=== PATIENT | female | born 1930 | race Caucasian/White ===

== ENCOUNTER 2016-10-13 07:54 | Day surgery (SDC) | payer MEDICARE ==
[2016-10-06 17:21] LABS: ASCORBIC ACID (UR NOT ORDER) NEG (NEG); BILIRUBIN, URINE NEGATIVE (NEG); KETONE, URINE NEGATIVE (NEG); LEUKOCYTE ESTERASE(NOT OR NEG (NEG); WBC (NOT ORDERED) (RFLEX) 1 (0-5)
[2016-10-06 17:22] LABS: HEMOGLOBIN 12.5 g/dL (12.0-16.0)
[2016-10-06 17:34] LABS: CALCIUM, SERUM 9.3 MG/DL (8.5-10.4); CHLORIDE, SERUM 103 MMOL/L (96-112); CREATININE 0.79 MG/DL (0.55-1.02); GFR AFRICAN AMERICAN 80 ML/MIN (>=60); GFR NON AFRICAN AMERICAN 69 ML/MIN (>=60); GLUCOSE, SERUM 92 MG/DL (60-99); POTASSIUM, SERUM 3.8 MMOL/L (3.5-5.3); SODIUM, SERUM 137 MMOL/L (135-148)
[2016-10-06 17:36] LABS: BUN (BLOOD UREA NITROGEN) 16 MG/DL (6-23); CO2 (CARBON DIOXIDE) 29 MMOL/L (24-34)
--- NOTE | ~2016-10-13 | OP ---
Record Of Operation [facility] [address] [place]. [address] NAME: CARROLL VALENZUELA : 34 STATUS : [facility]#: [id number] AGE: 86 ADM/REG DATE : 10/13/16 MR#: [id number] REPORT SERV DATE: 10/14/16 DICTATED BY: SLAVA DAVALOS DATE: 10/13/16 REPORT STATUS : Draft TRANSCRIBED BY: SOCORRO DATE: 10/13/16 DATE OF PROCEDURE: 10/13/2016 TYPE OF OPERATION: 1. Cystourethroscopy. 2. Right retrograde pyelogram. 3. Right ureteroscopy. 4. Placement of 6 x 24 right ureteral stent. PREOPERATIVE DIAGNOSIS: Right hydronephrosis. POSTOPERATIVE DIAGNOSIS: Right UPJ obstruction. INDICATIONS: Ms. Valenzuela is an 86-year-old female with symptomatic right hydronephrosis. She is here for evaluation. ANESTHESIA: General. COMPLICATIONS: None. IMPLANTS: 6 x 24 right ureteral stent with tether. SPECIMENS: None. NARRATIVE: The patient was brought to the operating room, identified by her wristband. General anesthesia was induced and Levaquin was given for preoperative antibiotics. She was placed in the dorsal lithotomy position and prepped and draped in sterile fashion. A cystoscope was placed into her urethra and into her bladder. The bladder was inspected. It was normal. The right ureteral orifice was identified and cannulated with a Sensor wire. A retrograde pyelogram was performed. The ureter was of normal caliber with no filling defects. The renal pelvis and calices were dilated, but not seriously so. Ureter inserted high on the renal pelvis. A wire was placed up the ureter and up to the level of the kidney. A flexible ureteroscope was placed over the wire. The kidney was inspected. It was normal. The endoscopic inspection of the UPJ was consistent with a high insertion of the ureter on the renal pelvis. A scope was withdrawn. A wire was placed. A 6 x 24 ureteral stent was placed in standard fashion. The proximal coil was in the renal pelvis. Distal coil was in the bladder. A tether was left. It was taped to her leg. The bladder was drained. The patient was awoken from anesthesia and transferred to the recovery room in stable condition. I will see her back on for stent removal and undergo options, which will include conservative management versus repair ideally in an 86-year-old female, we will not have to do any sort of aggressive therapy. TRENT/SOCORRO Record Of [place] [id number] [place]. [address] NAME: CARROLL VALENZUELA : 34 STATUS : [facility] PAT#: [id number] AGE: 86 ADM/REG DATE : 10/13/16 MR#: [id number] REPORT SERV DATE: 10/14/16 DICTATED BY: SLAVA DAVALOS DATE: 10/13/16 REPORT STATUS : Draft TRANSCRIBED BY: SOCORRO DATE: 10/13/16 Slava Davalos MD / [id number] CC: Slava Davalos MD
[~2016-10-13 07:54] MED LIST: ALFALFA PO; ALPHA LIPOIC300 MG PO; ASAB PO; CALTRA600D PO; COQ-10200 MG PO; ECHINACEA125 MG PO; FISH OIL300 MG PO; FOLIC ACID400 MC1 PO; GARLIC PO; HAWTHORN BER500 MG PO; HERBALS; MELA3 PO; MILK THISTLE PO; MOBIC15 MG PO; MULTIPLE VIT PO; MULTIVITAMI1 PO; RED YEAS1 PO; SLO-NIACIN250 MG PO; TAURINE PO; ULTRAM50 PO; VALERIAN ROOT PO; VITAMIN B-121000 MC1 SL; VITAMIN B-1500 MG PO; VITAMIN B-625 MG PO; VITC500 PO; VITS; XARELTO10 MG PO; ZESTRIL20 MG PO
== END 2016-10-13 12:56 | disposition home or self-care (01) ==
LOC: SDC 07:54
PROVIDERS: Urology
PROC: BT1DZZZ Fluoroscopy of Right Kidney, Ureter and Bladder (ICD-10-PCS; 2016-10-13)
PROC: 0T768DZ Dilation of Right Ureter with Intraluminal Device, Via Natural or Artificial Opening Endoscopic (ICD-10-PCS; principal; 2016-10-13 10:15)
DX: N13.5 Crossing vessel and stricture of ureter without hydronephrosis (principal); N23 Unspecified renal colic; I10 Essential (primary) hypertension; I44.2 Atrioventricular block, complete; E78.5 Hyperlipidemia, unspecified; E78.00 Pure hypercholesterolemia, unspecified; M19.90 Unspecified osteoarthritis, unspecified site; Z98.41 Cataract extraction status, right eye; Z98.42 Cataract extraction status, left eye; Z96.1 Presence of intraocular lens; Z95.0 Presence of cardiac pacemaker; Z96.653 Presence of artificial knee joint, bilateral; Z78.0 Asymptomatic menopausal state; Z90.49 Acquired absence of other specified parts of digestive tract; Z90.89 Acquired absence of other organs; Z79.899 Other long term (current) drug therapy; Z79.891 Long term (current) use of opiate analgesic; Z79.82 Long term (current) use of aspirin
CPT/HCPCS: 74420; 80048; 81001; 85014; 85018; 93005; A9270-GY; C1758; C1894; C2617; J2405; J2710; J3010; Q9967